=== PATIENT | male | born 1960 | race African-American/Black ===

== ENCOUNTER 2020-04-28 05:02 | Emergency (ER) | payer SELFPAY ==
[2020-04-28 05:26] VITALS: BMI 25.8
--- NOTE | 2020-04-28 05:29 | PDOC ---
Attending Attestation - Resident Resident Name: EdilsonMiah - ED Attending Attestation I have performed the following: I have examined & evaluated the patient, The case was reviewed & discussed with the resident, I agree w/resident's findings & plan - HPI HPI: 04/28/20 06:10 see resident hpi - Physicial Exam PE: 04/28/20 06:10 see resident exam - Medical Decision Making 04/28/20 06:10 59-year-old male with abdominal pain, epigastric radiating to bilateral lower quadrants, right greater than left EKG shows a normal sinus rhythm though patient does have a history of paroxysmal A. fib, not currently on anticoagulation Plan for labs and CT scan of the abdomen and pelvis Case will be signed out to oncoming shift for remainder of evaluation Discharge - Discharge Information Problems reviewed: Yes Clinical Impression/Diagnosis: Abdominal pain - Follow up/Referral - Patient Discharge Instructions - Post Discharge Activity
[2020-04-28] MEDS ORDERED: MAG HYDROX/AL HYDROX/SIMETH 30 ML UNIT-DOSE CUP PO ONE (05:43)
[2020-04-28] MEDS ORDERED: FAMOTIDINE 20 MG/50 ML IVPB 20 MG/50 ML MG IVPB ONE ×2 (05:43→05:58)
[2020-04-28] MEDS ORDERED: SODIUM CHLORIDE 1,000 ML IV STA (05:45)
[2020-04-28] MEDS ORDERED: ACETAMINOPHEN 1000 MG/100 ML VIAL (NON FORMULARY) IVPB ONE (05:45)
--- NOTE | 2020-04-28 05:56 | PDOC ---
History of Present Illness - General Chief Complaint: Pain Stated Complaint: ABDOMINAL PAIN Time Seen by Provider: 04/28/20 05:26 History Source: Patient Exam Limitations: No Limitations - History of Present Illness Initial Comments: 04/30/20 12:03 59M PMH HTN DM, ?pAF not on AC presenting with 3 days of migratory on/off abdominal cramping w/o n/v/d/constipation/f/c. PO tolerant. No prior abd surgeries. Last BM last PM, nonbloody formed stool. Sx not associated with food. No sick contacts. Denies cp/sob. Denies etoh, tobacco. Prior cardiac cath w/o stenting approximately 4-5 years ago. NKDA. Past History - Past Medical History Allergies/Adverse Reactions: Allergies Allergy/AdvReac Type Severity Reaction Status Date / Time No Known Allergies Allergy Verified 04/28/20 05:20 Home Medications: Ambulatory Orders Meclizine HCl [Antivert -] 50 mg PO TID #30 tablet MDD 3 06/26/16 Famotidine [Pepcid -] 20 mg PO BID #14 tablet 04/28/20 Mag Hydrox/Al Hydrox/Simeth [Mylanta Suspension -] 30 ml PO Q6H #1 bottle 04/28/20 GI Disorders: Yes (GERD) HTN: Yes (hx/borderline) - Immunization History Immunization Up to Date: Yes - Psycho Social/Smoking Cessation Hx Smoking Status: No Smoking History: Never smoked Have you smoked in the past 12 months: No Number of Cigarettes Smoked Daily: 0 Hx Alcohol Use: No Drug/Substance Use Hx: No Substance Use Type: None Hx Substance Use Treatment: No Review of Systems - Review of Systems Comments:: 04/30/20 12:03 CONSTITUTIONAL: Denies F / C HEENT: Denies sore throat, rhinorrhea RESP: Denies SOB, cough CARD: Denies chest pain, palpitations GI: endorses abdominal cramping. Denies N / V / D, bloody stool, inability to tolerate PO : Denies dysuria, hematuria NEURO: Denies numbness, tingling, weakness MSK: Denies back pain SKIN: Denies rashes *Physical Exam - Vital Signs Last Vital Signs Temp Pulse Resp BP Pulse Ox 98.7 F 74 18 174/92 H 99 04/28/20 05:05 04/28/20 05:05 04/28/20 05:05 04/28/20 05:05 04/28/20 05:05 - Physical Exam 04/30/20 12:03 GEN: Well appearing, NAD, comfortable. AAOx3. HEENT: NC/AT, EOMI. No facial asymmetry. Normal voice. Supple neck w/ FROM. CV: S1/S2, RRR, no m/r/g LUNG: CTAB, no wheezes, crackles, rales, rhonchi. GI: Epigastric tenderness, soft, nondistended, +BS, no guarding, no rebound. No masses. MSK: No obvious deformities of all extremities. SKIN: Warm, dry, no rashes appreciated. PSYCH: Normal mood and affect. NEURO: Moving all extremities well. ED Treatment Course - LABORATORY CBC & Chemistry Diagram: 04/28/20 06:10 04/28/20 06:10 Medical Decision Making - Medical Decision Making 04/28/20 05:48 59M w/ 3 days of abdominal cramping. tender epigastrium on exam. DDX pancreatitis, biliary pathology, gastroenteritis, ACS, colitis, diveriticulitis; unlikely SBO. - CBC, CMP, Cardiac, Lipase, Lactic - UA - EKG 0530 HR 62, intervals wnl, no TWI or JANELL/D - CXR - GI cocktail + ASA - consider CT A/P, 04/28/20 06:57 signed out to AM team for further management Discharge - Discharge Information Problems reviewed: Yes Clinical Impression/Diagnosis: Abdominal pain Qualifiers: Abdominal location: epigastric Qualified Code(s): R10.13 - Epigastric pain Condition: Stable Disposition: HOME - Additional Discharge Information Prescriptions: Mag Hydrox/Al Hydrox/Simeth [Mylanta Suspension -] 30 ml PO Q6H #1 bottle Famotidine [Pepcid -] 20 mg PO BID #14 tablet - Follow up/Referral Referrals: Antwon Rivera DO [Staff Physician] - Urbano Tyson MD [Staff Physician] - Clau Oliveira MD [Staff Physician] - Leo Veliz MD [Staff Physician] - - Patient Discharge Instructions Additional Instructions: You were seen in the ER for complaints of crampy upper abdominal pain You had improvement of your symptoms in the ER with medication and your labs were largely within normal You had a slight elevation in your creatinine which should be evaluated by Nephrology There does not appear to be a need for hospitalization at this time You have a referral to GI and you should follow up within 1 week You also have Nephrology referral which you should follow up in within 1 week. Return to the ER if you have worsening pain, nausea, sweating, vomiting or any other concerning symptoms. - Post Discharge Activity Work/Back to School Note: Back to Work
[2020-04-28] MEDS ORDERED: MAG HYDROX/AL HYDROX/SIMETH 30 ML UNIT-DOSE CUP ONE (05:58)
[2020-04-28] MEDS ORDERED: ACETAMINOPHEN INJECTION 100 ML IVPB ONE (05:58)
[2020-04-28 06:53] LABS: BASO % 0.5 % (0-2.0); EOS % 1.6 % (0-4.5); HEMATOCRIT 41.4 % (35.4-49); HEMOGLOBIN 13.8 GM/dL (11.7-16.9); LYMPH % 27.1 % (8-40); MCH 29.5 pg (25.7-33.7); MCHC 33.3 g/dl (32.0-35.9); MEAN CELL VOLUME 88.6 fl (80-96); MEAN PLT VOLUME 9.1 fl (7.5-11.1); MONO % 9.4 % (3.8-10.2); NEUT % 61.4 % (42.8-82.8); PLATELET COUNT 227 K/MM3 (134-434); RBC 4.67 M/mm3 (4.00-5.60); RDW 15.1 % (11.9-15.9); WHITE BLOOD COUNT 5.3 K/mm3 (4.0-10.0)
[2020-04-28 07:09] LABS: URINE APPEARANCE CLEAR; URINE BILIRUBIN NEGATIVE (NEGATIVE); URINE COLOR YELLOW; URINE GLUCOSE (UA) NEGATIVE (NEGATIVE); URINE KETONE NEGATIVE (NEGATIVE); URINE LEUK ESTERASE NEGATIVE (NEGATIVE); URINE NITRITE NEGATIVE (NEGATIVE); URINE PROTEIN NEGATIVE (NEGATIVE)
--- NOTE | 2020-04-28 07:13 | PDOC ---
*Physical Exam - Vital Signs Last Vital Signs Temp Pulse Resp BP Pulse Ox 98.7 F 74 18 174/92 H 99 04/28/20 05:05 04/28/20 05:05 04/28/20 05:05 04/28/20 05:05 04/28/20 05:05 - Physical Exam 04/28/20 07:12 Patient signed out by resident Dr. Waggoner In short patient with epigastric carmping abdominal pain within normal EKG pending labs, +/- imaging ED Course: Labs with elevated Cr, otherwise normal Patient feels like pain is less than 1/10 Agrees to outpt GI follow and Nephro follow Rx for pepcid, maalox strict return precautions ED Treatment Course - LABORATORY CBC & Chemistry Diagram: 04/28/20 06:10 04/28/20 06:10 - ADDITIONAL ORDERS Additional order review: Laboratory Results 04/28/20 06:10 Urine Color Yellow Urine Appearance Clear Urine pH 5.0 Ur Specific [place] 1.016 Urine Protein Negative Urine Glucose (UA) Negative Urine Ketones Negative Urine Blood Negative Urine Nitrite Negative Urine Bilirubin Negative Urine Urobilinogen 1.0 Ur Leukocyte Esterase Negative 04/28/20 06:10 RBC 4.67 MCV 88.6 MCHC 33.3 RDW 15.1 MPV 9.1 Neutrophils % 61.4 Lymphocytes % 27.1 Monocytes % 9.4 Eosinophils % 1.6 Basophils % 0.5 - Medications Given in the ED: ED Medications Discontinued Medications Generic Name Dose Route Start Last Admin Trade Name Freq PRN Reason Stop Dose Admin Acetaminophen 1,000 mg 04/28/20 05:45 04/28/20 06:19 Ofirmev Injection - IVPB 04/28/20 05:46 1,000 mg ONCE ONE Administration Al Hydroxide/Mg Hydroxide 30 ml 04/28/20 05:43 04/28/20 06:18 Mylanta Oral Suspension - PO 04/28/20 05:44 30 ml ONCE ONE Administration Famotidine/Sodium Chloride 20 mg in 50 mls @ 100 mls/hr 04/28/20 05:43 04/28/20 06:18 Pepcid 20 Mg Premixed Ivpb - IVPB 04/28/20 06:12 100 mls/hr ONCE ONE Administration Sodium Chloride 1,000 mls @ 1,000 mls/hr 04/28/20 05:45 04/28/20 06:19 Normal Saline - IV 04/28/20 06:44 1,000 mls/hr ASDIR STA Administration Discharge - Discharge Information Problems reviewed: Yes Clinical Impression/Diagnosis: Abdominal pain Condition: Stable Disposition: HOME - Additional Discharge Information Prescriptions: Mag Hydrox/Al Hydrox/Simeth [Mylanta Suspension -] 30 ml PO Q6H #1 bottle Famotidine [Pepcid -] 20 mg PO BID #14 tablet - Follow up/Referral Referrals: Urbano Tyson MD [Staff Physician] - Antwon Rivera DO [Staff Physician] - Clau Oliveira MD [Staff Physician] - Leo Veliz MD [Staff Physician] - - Patient Discharge Instructions Additional Instructions: You were seen in the ER for complaints of crampy upper abdominal pain You had improvement of your symptoms in the ER with medication and your labs were largely within normal You had a slight elevation in your creatinine which should be evaluated by Nephrology There does not appear to be a need for hospitalization at this time You have a referral to GI and you should follow up within 1 week You also have Nephrology referral which you should follow up in within 1 week. Return to the ER if you have worsening pain, nausea, sweating, vomiting or any other concerning symptoms. - Post Discharge Activity Work/Back to School Note: Back to Work
[2020-04-28 07:31] LABS: ALBUMIN 3.7 g/dl (3.4-5.0); ALK PHOS 69 U/L (45-117); ANION GAP 6 MMOL/L (8-16); BILIRUBIN,TOTAL 0.6 mg/dL (0.2-1); BLOOD UREA NITROGEN 15.9 mg/dL (7-18); CALCIUM 10.2 mg/dL (8.5-10.1); CHLORIDE 106 mmol/L (98-107); CO2 28 mmol/L (21-32); CREATININE 1.7 mg/dL (0.55-1.3); POTASSIUM 4.6 mmol/L (3.5-5.1); SGOT/AST 20 U/L (15-37); SGPT/ALT 23 U/L (13-61); SODIUM 140 mmol/L (136-145); TOT PROT 7.2 g/dl (6.4-8.2)
[2020-04-28 07:34] VITALS: BP 141/85; PULSE 57; TEMP 97.9
[2020-04-28 08:12] LABS: GLUCOSE,RANDOM 111 mg/dL (74-106)
[2020-04-28 08:31] LABS: INR 0.95 (0.83-1.09); PROTHROMBIN TIME (PATIENT) 11.2 SEC (9.7-13.0)
--- NOTE | 2020-04-28 09:22 | PDOC ---
*Physical Exam - Vital Signs Last Vital Signs Temp Pulse Resp BP Pulse Ox 97.9 F 57 L 18 141/85 100 04/28/20 07:23 04/28/20 07:23 04/28/20 07:23 04/28/20 07:23 04/28/20 07:23 ED Treatment Course - LABORATORY CBC & Chemistry Diagram: 04/28/20 06:10 04/28/20 06:10 - ADDITIONAL ORDERS Additional order review: Laboratory Results 04/28/20 04/28/20 04/28/20 07:50 07:50 06:10 PT with INR 11.20 INR 0.95 Sodium Potassium Chloride Carbon Dioxide Anion Gap BUN Creatinine Est GFR (CKD-EPI)AfAm Est GFR (CKD-EPI)NonAf Random Glucose Lactic Acid 0.8 Calcium Total Bilirubin AST ALT Alkaline Phosphatase Creatine Kinase Creatine Kinase Index CK-MB (CK-2) Troponin I Total Protein Albumin Lipase 190 Urine Color Urine Appearance Urine pH Ur Specific [place] Urine Protein Urine Glucose (UA) Urine Ketones Urine Blood Urine Nitrite Urine Bilirubin Urine Urobilinogen Ur Leukocyte Esterase 04/28/20 04/28/20 06:10 06:10 PT with INR INR Sodium 140 Potassium 4.6 Chloride 106 Carbon Dioxide 28 Anion Gap 6 L BUN 15.9 Creatinine 1.7 H Est GFR (CKD-EPI)AfAm 50.05 Est GFR (CKD-EPI)NonAf 43.18 Random Glucose 111 H Lactic Acid Calcium 10.2 H Total Bilirubin 0.6 AST 20 ALT 23 Alkaline Phosphatase 69 Creatine Kinase 240 Creatine Kinase Index No Result Required. CK-MB (CK-2) < 1.0 Troponin I < 0.02 Total Protein 7.2 Albumin 3.7 Lipase Urine Color Yellow Urine Appearance Clear Urine pH 5.0 Ur Specific [place] 1.016 Urine Protein Negative Urine Glucose (UA) Negative Urine Ketones Negative Urine Blood Negative Urine Nitrite Negative Urine Bilirubin Negative Urine Urobilinogen 1.0 Ur Leukocyte Esterase Negative 04/28/20 06:10 RBC 4.67 MCV 88.6 MCHC 33.3 RDW 15.1 MPV 9.1 Neutrophils % 61.4 Lymphocytes % 27.1 Monocytes % 9.4 Eosinophils % 1.6 Basophils % 0.5 - Medications Given in the ED: ED Medications Discontinued Medications Generic Name Dose Route Start Last Admin Trade Name Freq PRN Reason Stop Dose Admin Acetaminophen 1,000 mg 04/28/20 05:45 04/28/20 06:19 Ofirmev Injection - IVPB 04/28/20 05:46 1,000 mg ONCE ONE Administration Al Hydroxide/Mg Hydroxide 30 ml 04/28/20 05:43 04/28/20 06:18 Mylanta Oral Suspension - PO 04/28/20 05:44 30 ml ONCE ONE Administration Famotidine/Sodium Chloride 20 mg in 50 mls @ 100 mls/hr 04/28/20 05:43 04/28/20 06:18 Pepcid 20 Mg Premixed Ivpb - IVPB 04/28/20 06:12 100 mls/hr ONCE ONE Administration Sodium Chloride 1,000 mls @ 1,000 mls/hr 04/28/20 05:45 04/28/20 06:19 Normal Saline - IV 04/28/20 06:44 1,000 mls/hr ASDIR STA Administration Medical Decision Making - Medical Decision Making 04/28/20 09:21 Well-appearing no apparent distress labs within normal limits no elevated white blood cell count GI labs within normal lactic negative reevaluation patient feels much better pain is completely resolved there is no rebound guarding or abdominal tenderness to palpation on his repeat examination Discussed pros and cons risks and benefits of CAT scan at this time using shared decision making patient would like to hold off on CAT scan. Will provide the patient with GI follow-up he will return to the emergency department for any severe returning symptoms or for any concerns Findings, need for follow-up and strict return instructions discussed with patient. Discharge - Discharge Information Problems reviewed: Yes Clinical Impression/Diagnosis: Abdominal pain Qualifiers: Abdominal location: epigastric Qualified Code(s): R10.13 - Epigastric pain Condition: Stable Disposition: HOME - Additional Discharge Information Prescriptions: Mag Hydrox/Al Hydrox/Simeth [Mylanta Suspension -] 30 ml PO Q6H #1 bottle Famotidine [Pepcid -] 20 mg PO BID #14 tablet - Follow up/Referral Referrals: Antwon Rivera DO [Staff Physician] - Urbano Tyson MD [Staff Physician] - Clau Oliveira MD [Staff Physician] - Leo Veliz MD [Staff Physician] - - Patient Discharge Instructions Additional Instructions: You were seen in the ER for complaints of crampy upper abdominal pain You had improvement of your symptoms in the ER with medication and your labs were largely within normal You had a slight elevation in your creatinine which should be evaluated by Nephrology There does not appear to be a need for hospitalization at this time You have a referral to GI and you should follow up within 1 week You also have Nephrology referral which you should follow up in within 1 week. Return to the ER if you have worsening pain, nausea, sweating, vomiting or any other concerning symptoms. - Post Discharge Activity Work/Back to School Note: Back to Work
--- NOTE | 2020-04-28 15:40 | EKG ---
Test Reason : Blood Pressure : / mmHG Vent. Rate : 062 BPM Atrial Rate : 062 BPM P-R Int : 152 ms QRS Dur : 072 ms QT Int : 398 ms P-R-T Axes : 037 -23 014 degrees QTc Int : 403 ms NORMAL SINUS RHYTHM WITH SINUS ARRHYTHMIA MODERATE VOLTAGE CRITERIA FOR LVH, MAY BE NORMAL VARIANT NONSPECIFIC T WAVE ABNORMALITY ABNORMAL ECG WHEN COMPARED WITH ECG OF 26-JUN-2016 13:53, QT HAS LENGTHENED Confirmed by MD ORIANA, MI ([id number]) on 04/28/2020 3:39:51 PM Referred By: Confirmed By:MI GASTELUM MD
== END 2020-04-28 09:26 | disposition home or self-care (01) ==
LOC: JER 05:02
PROC: 3E03329 Introduction of Other Anti-infective into Peripheral Vein, Percutaneous Approach (ICD-10-PCS; principal; 2020-04-28)
PROC: 3E033GC Introduction of Other Therapeutic Substance into Peripheral Vein, Percutaneous Approach (ICD-10-PCS; 2020-04-28)
PROC: 3E0337Z Introduction of Electrolytic and Water Balance Substance into Peripheral Vein, Percutaneous Approach (ICD-10-PCS; 2020-04-28)
DX: R10.13 Epigastric pain (principal)
CPT/HCPCS: 36415; 71045-TC-FY; 80053; 81003; 82550; 82553; 83605; 83690; 84484; 85025; 85610; 93005; 93010; 99285-25; J0131

== ENCOUNTER 2020-11-15 12:31 | Emergency (ER) | payer SELFPAY ==
[2020-11-15 12:48] VITALS: BP 147/90; PULSE 107; TEMP 98; BMI 36.1
== END 2020-11-15 14:43 | disposition home or self-care (01) ==
LOC: JER 12:31
DX: R05 Cough (principal)
CPT/HCPCS: 71046-TC-FY; 99283-25